=== PATIENT | female | born 1935 | race Caucasian/White ===

== ENCOUNTER 2020-10-17 09:56 | Outpatient (CLI) | payer OTHER ==
[~2020-10-17 09:56] MED LIST: COZAAR100 MG; FENOFIBRATE160 MG; NEURONTIN300 MG PO; NORVASC5 MG; PROTONIX40 MG PO; SIMVASTATIN10 MG; SPIRONOLACTONE25 MG; TENORMIN100 M1
== END 2020-10-17 10:00 | disposition home or self-care (01) ==
LOC: SONOGRAMA 09:56
PROVIDERS: ATTEND Pathology Anatomic Pathology & Clinical Pathology
DX: R59.0 Localized enlarged lymph nodes (principal)